=== PATIENT | female | born 1945 | race Caucasian/White ===

== ENCOUNTER 2020-02-04 23:03 | Inpatient (IN) | payer MEDICARE, OTHER ==
[~2020-02-04] VITALS: Ht 154.9 cm; Wt 64.4 kg
[~2020-02-04 23:03] MED LIST: ACETAMINOPHEN500 M5 PO; ASPIR 8181 MG PO; COREG3.125 MG PO; COUMADIN10 M1 PO; COUMADIN2 M1 PO; COUMADIN4 M2 PO; DONEPEZIL HYDROC5 MG PO; DULCOLAX STOOL100 M1 PO; HALOPERIDOL5 MG/1 M2 IM; IMODIUM A-D2 M2 PO; Lovenox60 MG/0.6 PO; MAPAP325 MG PO; MILK OF MA400 MG/5 M PO; MULTIVITAMINS1 EAC6 PO; NAMENDA-28 PO; NORCO 7.5-3251 EACH PO; SERTRALINE HYDR25 MG PO; VITAMIN C500 M8 PO; VITAMIN D50000 UNIT PO; Zofran4 MG SL
[2020-02-04 23:07] VITALS: BP 164/65
[2020-02-04 23:28] VITALS: BP 150/57
[2020-02-04 23:39] LABS: HEMATOCRIT 29.8 % (37.0-47.0); MEAN CORPUSCULAR HGB 25.7 pg (27.0-31.0); MEAN CORPUSCULAR HGB CONC 28.9 g/dl (33.0-37.0); MEAN PLATELET VOLUME 10.6 fl (9.6-12.3); NUCLEATED RED BLOOD CELL 0.1 10*3/uL (0.0-0.0); NUCLEATED RED BLOOD CELL 0.4 % (0.0-0.0); PLATELET COUNT AUTOMATED 332 10*3/uL (130-400); RED BLOOD COUNT 3.35 10*6/uL (4.10-5.10); RED CELL DISTRI WIDTH 20.1 % (0-14.5); WHITE BLOOD COUNT 11.4 10*3/uL (4.8-10.8)
[2020-02-04 23:44] VITALS: BP 141/55
[2020-02-04 23:55] LABS: ALBUMIN 2.9 gm/dl (3.1-4.5); ALKALINE PHOSPHATASE 151 U/L (45-117); BUN 24 mg/dl (7-24); CHLORIDE 114 mmol/L (98-107); CREATININE 0.75 mg/dL (0.55-1.02); POTASSIUM 3.8 mmol/L (3.5-5.1); SGOT/AST 39 IU/L (3-35); SGPT/ALT 12 U/L (12-78); SODIUM 148 mmol/L (136-145)
[2020-02-05] VITALS (13 sets, daily range): BP systolic 130–163; BP diastolic 54–85
[2020-02-05 00:07] LABS: POLYCHROMASIA SLIGHT; TOTAL CELLS COUNTED 100 #CELLS
[2020-02-05 00:08] LABS: MICROCYTOSIS SLIGHT; OVALOCYTES FEW; PLATELET SUFFICIENCY NORMAL (NORMAL)
[2020-02-05 01:23] LABS: BILIRUBIN 3+ (Negative); BLOOD Negative (Negative); CLARITY Cloudy (Clear); COLOR Orange (Yellow); GLUCOSE Negative (Negative); KETONE Negative (Negative); LEUKO ESTERASE 1+ (Negative); NITRITE Positive (Negative); SPECIFIC GRAVITY >= 1.030 (1.001-1.030)
[2020-02-05 01:36] LABS: EPITHELIAL CELLS TNTC
[2020-02-05 01:38] LABS: BACTERIA 1+
[2020-02-05 01:39] LABS: MUCOUS 2+
[2020-02-05 04:22] LABS: HEMATOCRIT 29.3 % (37.0-47.0); MEAN CELL VOLUME 88.3 fl (81.0-99.0); MEAN CORPUSCULAR HGB 25.9 pg (27.0-31.0); MEAN CORPUSCULAR HGB CONC 29.4 g/dl (33.0-37.0); MEAN PLATELET VOLUME 11.3 fl (9.6-12.3); NUCLEATED RED BLOOD CELL 0.3 % (0.0-0.0); PLATELET COUNT AUTOMATED 296 10*3/uL (130-400); RED BLOOD COUNT 3.32 10*6/uL (4.10-5.10); RED CELL DISTRI WIDTH 20.2 % (0-14.5); WHITE BLOOD COUNT 10.6 10*3/uL (4.8-10.8)
[2020-02-05 04:44] LABS: ALKALINE PHOSPHATASE 151 U/L (45-117); BUN 22 mg/dl (7-24); CHLORIDE 111 mmol/L (98-107); CPK 58 U/L (26-192); CREATININE 0.62 mg/dL (0.55-1.02); LDH 558 U/L (84-246); POTASSIUM 3.4 mmol/L (3.5-5.1); SGOT/AST 40 IU/L (3-35); SGPT/ALT 13 U/L (12-78); SODIUM 146 mmol/L (136-145); TOTAL PROTEIN 6.1 gm/dL (6.4-8.2)
[2020-02-05 04:55] LABS: BASOPHILS 1 % (0-1); PLATELET SUFFICIENCY NORMAL (NORMAL); TOTAL CELLS COUNTED 100 #CELLS
[2020-02-05 04:56] LABS: POLYCHROMASIA SLIGHT
[2020-02-05 04:57] LABS: MICROCYTOSIS MODERATE; STOMATOCYTE FEW
[2020-02-05] MEDS ORDERED: FERRETTS325 M1 PO (07:29)
[2020-02-05] MEDS ORDERED: MIRALAX POWDER17 G1 PO (07:39)
[2020-02-05] MEDS ORDERED: NYSTOP60 GM T (07:42)
[2020-02-05] MEDS ORDERED: SENNA8.8 MG/5 M PO (07:43)
[2020-02-05] MEDS ORDERED: Coumadin5 MG PO (07:46)
[2020-02-05] MEDS ORDERED: Coumadin7.5 MG PO (07:48)
[2020-02-05 10:37] LABS: ARTERIAL BLOOD GAS PH 7.497 (7.35-7.45)
[2020-02-05 10:38] LABS: INTERNATIONAL NORM RATIO 2.7 (2.0-3.5)
[2020-02-06 00:13] VITALS: BP 142/57
[2020-02-06 06:04] LABS: HEMATOCRIT 30.2 % (37.0-47.0); MEAN CELL VOLUME 89.6 fl (81.0-99.0); MEAN CORPUSCULAR HGB 25.8 pg (27.0-31.0); MEAN CORPUSCULAR HGB CONC 28.8 g/dl (33.0-37.0); MEAN PLATELET VOLUME 11.7 fl (9.6-12.3); PLATELET COUNT AUTOMATED 306 10*3/uL (130-400); RED BLOOD COUNT 3.37 10*6/uL (4.10-5.10); WHITE BLOOD COUNT 10.9 10*3/uL (4.8-10.8)
[2020-02-06 06:22] LABS: INTERNATIONAL NORM RATIO 1.8 (2.0-3.5)
[2020-02-06 06:31] LABS: ALBUMIN 2.8 gm/dl (3.1-4.5); BUN 27 mg/dl (7-24); CHLORIDE 114 mmol/L (98-107); CREATININE 0.49 mg/dL (0.55-1.02); POTASSIUM 2.6 mmol/L (3.5-5.1); SGOT/AST 25 IU/L (3-35); SGPT/ALT 12 U/L (12-78); SODIUM 150 mmol/L (136-145); TOTAL PROTEIN 5.8 gm/dL (6.4-8.2)
[2020-02-06 06:34] LABS: ALKALINE PHOSPHATASE 132 U/L (45-117); CPK 52 U/L (26-192); LDH 479 U/L (84-246)
[2020-02-06 07:13] LABS: PLATELET SUFFICIENCY NORMAL (NORMAL); POLYCHROMASIA SLIGHT; TOTAL CELLS COUNTED 100 #CELLS
[2020-02-06 08:00] VITALS: BP 151/60
[2020-02-06 09:24] LABS: ABG BASE EXCESS 4.7 mmol/L (-2.0-2.0); ARTERIAL BLOOD GAS PH 7.508 (7.35-7.45)
[2020-02-06 12:00] VITALS: BP 155/64
[2020-02-06 16:00] VITALS: BP 152/73
[2020-02-06 18:26] LABS: ALBUMIN 2.9 gm/dl (3.1-4.5); ALKALINE PHOSPHATASE 132 U/L (45-117); BUN 29 mg/dl (7-24); CHLORIDE 112 mmol/L (98-107); SGOT/AST 24 IU/L (3-35); SGPT/ALT 15 U/L (12-78); SODIUM 147 mmol/L (136-145); TOTAL PROTEIN 5.7 gm/dL (6.4-8.2)
[2020-02-06 18:38] LABS: POTASSIUM 4.7 mmol/L (3.5-5.1)
[2020-02-06 20:00] VITALS: BP 86/54
[2020-02-07] VITALS: BP 125/55
[2020-02-07 06:44] LABS: BASO % 0.1 % (0.0-1.0); EOS # 0.1 10*3/uL (0.0-0.4); HEMATOCRIT 29.5 % (37.0-47.0); LYMPH # 0.9 10*3/uL (1.3-4.4); MEAN CELL VOLUME 89.7 fl (81.0-99.0); MEAN CORPUSCULAR HGB 25.5 pg (27.0-31.0); MEAN CORPUSCULAR HGB CONC 28.5 g/dl (33.0-37.0); MONO # 0.4 10*3/uL (0.1-1.0); MONO % 4.2 % (3.0-9.0); NEUT # 7.9 10*3/uL (2.3-7.9); PLATELET COUNT AUTOMATED 256 10*3/uL (130-400); RED BLOOD COUNT 3.29 10*6/uL (4.10-5.10); RED CELL DISTRI WIDTH 19.9 % (0-14.5); WHITE BLOOD COUNT 9.4 10*3/uL (4.8-10.8)
[2020-02-07 07:06] LABS: ALBUMIN 2.8 gm/dl (3.1-4.5); BUN 30 mg/dl (7-24); CHLORIDE 112 mmol/L (98-107); CREATININE 0.38 mg/dL (0.55-1.02); LDH 479 U/L (84-246); POTASSIUM 4.3 mmol/L (3.5-5.1); SGOT/AST 30 IU/L (3-35); SGPT/ALT 14 U/L (12-78); SODIUM 146 mmol/L (136-145); TOTAL PROTEIN 5.6 gm/dL (6.4-8.2)
[2020-02-07 07:07] LABS: INTERNATIONAL NORM RATIO 1.8 (2.0-3.5)
[2020-02-07 07:08] LABS: ALKALINE PHOSPHATASE 124 U/L (45-117)
[2020-02-07 07:46] LABS: ABG BASE EXCESS 4.5 mmol/L (-2.0-2.0); ARTERIAL BLOOD GAS PH 7.476 (7.35-7.45)
[2020-02-07 07:47] LABS: CPK 35 U/L (26-192)
[2020-02-07 08:00] VITALS: BP 147/69
[2020-02-07 12:00] VITALS: BP 156/69
[2020-02-07 16:00] VITALS: BP 123/46
[2020-02-07 20:00] VITALS: BP 153/84
[2020-02-08] VITALS: BP 149/67
[2020-02-08 06:20] LABS: ALBUMIN 2.6 gm/dl (3.1-4.5); ALKALINE PHOSPHATASE 112 U/L (45-117); BUN 26 mg/dl (7-24); CHLORIDE 108 mmol/L (98-107); CREATININE 0.24 mg/dL (0.55-1.02); POTASSIUM 4.5 mmol/L (3.5-5.1); SGOT/AST 26 IU/L (3-35); SGPT/ALT 18 U/L (12-78); SODIUM 140 mmol/L (136-145); TOTAL PROTEIN 5.1 gm/dL (6.4-8.2)
[2020-02-08 06:26] LABS: EOS % 0.6 % (1.0-4.0); HEMATOCRIT 27.7 % (37.0-47.0); LYMPH # 0.6 10*3/uL (1.3-4.4); LYMPH % 8.6 % (27.0-41.0); MEAN CELL VOLUME 90.5 fl (81.0-99.0); MEAN CORPUSCULAR HGB 25.5 pg (27.0-31.0); MEAN CORPUSCULAR HGB CONC 28.2 g/dl (33.0-37.0); MEAN PLATELET VOLUME 12.4 fl (9.6-12.3); MONO # 0.3 10*3/uL (0.1-1.0); MONO % 4.5 % (3.0-9.0); NEUT # 5.8 10*3/uL (2.3-7.9); NEUT % 85.1 % (47.0-73.0); NUCLEATED RED BLOOD CELL 0.3 % (0.0-0.0); PLATELET COUNT AUTOMATED 197 10*3/uL (130-400); RED BLOOD COUNT 3.06 10*6/uL (4.10-5.10); RED CELL DISTRI WIDTH 18.8 % (0-14.5); WHITE BLOOD COUNT 6.9 10*3/uL (4.8-10.8)
[2020-02-08 06:40] LABS: INTERNATIONAL NORM RATIO 1.7 (2.0-3.5)
[2020-02-08 08:00] VITALS: BP 144/74
[2020-02-08 10:22] LABS: ABG BASE EXCESS 2.8 mmol/L (-2.0-2.0); ARTERIAL BLOOD GAS PH 7.46 (7.35-7.45)
[2020-02-08 16:00] VITALS: BP 183/78
[2020-02-08 20:00] VITALS: BP 156/62
[2020-02-09] VITALS: BP 146/63
[2020-02-09 08:00] VITALS: BP 138/66
[2020-02-09] MEDS ORDERED: ZOFRAN4 MG PO (14:48)
[2020-02-09] MEDS ORDERED: MORPHINE S10 MG/5 M2 PO (14:52)
[2020-02-09] MEDS ORDERED: DULCOLAX10 M1 R (14:53)
== END 2020-02-09 14:17 | disposition hospice, home (50) | DRG 871 ==
LOC: ED 23:03 → EDHOLD 02-05 01:10 → 4E 02-05 01:10
PROVIDERS: Family Medicine; Internal Medicine; Internal Medicine Critical Care Medicine; Student in an Organized Health Care Education/Training Program; ADMIT Internal Medicine; ATTEND Internal Medicine
PROC: 5A0935A Assistance with Respiratory Ventilation, Less than 24 Consecutive Hours, High Flow/Velocity Cannula (ICD-10-PCS; principal; 2020-02-07)
PROC: 5A0935A Assistance with Respiratory Ventilation, Less than 24 Consecutive Hours, High Flow/Velocity Cannula (ICD-10-PCS; 2020-02-08)
DX: A41.9 Sepsis, unspecified organism (principal); J18.9 Pneumonia, unspecified organism; J96.01 Acute respiratory failure with hypoxia; E44.0 Moderate protein-calorie malnutrition; E87.0 Hyperosmolality and hypernatremia; E87.2 Acidosis; Z16.12 Extended spectrum beta lactamase (ESBL) resistance; N30.00 Acute cystitis without hematuria; J44.0 Chronic obstructive pulmonary disease with (acute) lower respiratory infection; Z66 Do not resuscitate; Z51.5 Encounter for palliative care; E87.8 Other disorders of electrolyte and fluid balance, not elsewhere classified; E83.41 Hypermagnesemia; D64.9 Anemia, unspecified; R79.89 Other specified abnormal findings of blood chemistry; E87.6 Hypokalemia; I50.9 Heart failure, unspecified; K21.00 Gastro-esophageal reflux disease with esophagitis, without bleeding; M81.0 Age-related osteoporosis without current pathological fracture; G30.9 Alzheimer's disease, unspecified; F02.80 Dementia in other diseases classified elsewhere, unspecified severity, without behavioral disturbance, psychotic disturbance, mood disturbance, and anxiety; Z68.23 Body mass index [BMI] 23.0-23.9, adult; S42.292D Other displaced fracture of upper end of left humerus, subsequent encounter for fracture with routine healing; X58.XXXD Exposure to other specified factors, subsequent encounter; Z88.8 Allergy status to other drugs, medicaments and biological substances; Z91.041 Radiographic dye allergy status; Z90.49 Acquired absence of other specified parts of digestive tract; Z95.0 Presence of cardiac pacemaker; Z95.2 Presence of prosthetic heart valve; Z79.899 Other long term (current) drug therapy; Z79.01 Long term (current) use of anticoagulants; Z20.828 Contact with and (suspected) exposure to other viral communicable diseases

== ENCOUNTER 2020-02-09 14:26 | Inpatient (IN) | payer OTHER, MEDICARE ==
[~2020-02-09 14:26] MED LIST changes: +Coumadin5 MG PO; +Coumadin7.5 MG PO; +FERRETTS325 M1 PO; +MIRALAX POWDER17 G1 PO; +NYSTOP60 GM T; +SENNA8.8 MG/5 M PO
[2020-02-09] MEDS ORDERED: ZOFRAN4 MG PO (14:48)
[2020-02-09] MEDS ORDERED: MORPHINE S10 MG/5 M2 PO (14:52)
[2020-02-09] MEDS ORDERED: DULCOLAX10 M1 R (14:53)
[2020-02-09 16:00] VITALS: BP 144/43
[2020-02-09 20:00] VITALS: BP 130/57
[2020-02-10] VITALS: BP 129/44
[2020-02-10 08:00] VITALS: BP 133/55
[2020-02-10 16:00] VITALS: BP 132/62
[2020-02-10 20:00] VITALS: BP 122/62
[2020-02-11] VITALS: BP 152/54
[2020-02-11 08:00] VITALS: BP 163/57
== END 2020-02-11 16:46 | disposition hospice, home (50) | DRG 189 ==
LOC: 4E 14:26
PROVIDERS: ADMIT Student in an Organized Health Care Education/Training Program; ATTEND Student in an Organized Health Care Education/Training Program
DX: J96.01 Acute respiratory failure with hypoxia (principal); J18.9 Pneumonia, unspecified organism; E44.0 Moderate protein-calorie malnutrition; N30.00 Acute cystitis without hematuria; J44.0 Chronic obstructive pulmonary disease with (acute) lower respiratory infection; E87.0 Hyperosmolality and hypernatremia; E87.2 Acidosis; Z51.5 Encounter for palliative care; I50.9 Heart failure, unspecified; S42.212D Unspecified displaced fracture of surgical neck of left humerus, subsequent encounter for fracture with routine healing; X58.XXXD Exposure to other specified factors, subsequent encounter; G30.9 Alzheimer's disease, unspecified; F02.80 Dementia in other diseases classified elsewhere, unspecified severity, without behavioral disturbance, psychotic disturbance, mood disturbance, and anxiety; M81.0 Age-related osteoporosis without current pathological fracture; E87.8 Other disorders of electrolyte and fluid balance, not elsewhere classified; E83.41 Hypermagnesemia; E87.6 Hypokalemia; R73.9 Hyperglycemia, unspecified; K21.00 Gastro-esophageal reflux disease with esophagitis, without bleeding; Z95.2 Presence of prosthetic heart valve; Z91.041 Radiographic dye allergy status; Z88.8 Allergy status to other drugs, medicaments and biological substances; Z91.048 Other nonmedicinal substance allergy status; Z79.899 Other long term (current) drug therapy; Z79.01 Long term (current) use of anticoagulants; Z68.29 Body mass index [BMI] 29.0-29.9, adult; Z95.0 Presence of cardiac pacemaker